=== PATIENT | female | born 1995 | race Caucasian/White ===

== ENCOUNTER 2021-07-22 05:11 | Inpatient (IN) | payer BC ==
[~2021-07-22] VITALS: Ht 165.1 cm; Wt 79.5 kg
[2021-07-22] VITALS (42 sets, daily range): BP systolic 108–137; BP diastolic 55–85; PULSE 73–120; TEMP 97.3–98.2
--- NOTE | 2021-07-22 05:15 | NUR ---
G1L0. 39-4. Ambulatory to LDR 5 with spouse. Clean gown on. EFM and TOCO explained and applied. Pt states her water broke at 0330, clear fluid. No contractions or vaginal bleeding at this time. Reports good movement. Amniotest +. SVE completed. Plan of care explained. Call light within [facility].
[2021-07-22 06:43] LABS: BASO # 0.1 K/mm3 (0.0-0.2); BASO % 0.4 % (0.0-2.0); EOS # 0.2 K/mm3 (0.0-0.7); EOS % 1.7 % (0.0-4.0); GRAN # 8.8 K/mm3 (1.4-6.5); GRAN % 68.8 % (42.2-75.2); HEMOGLOBIN 10.9 g/dl (12.5-16.0); LYMPH # 2.4 K/mm3 (1.2-3.4); LYMPH % 18.7 % (20.0-51.0); MEAN CELL VOLUME 96 fl (80.0-100.0); MEAN CORPUSCULAR HEMOGLOBIN 32 pg (27-31); MEAN CORPUSCULAR HGB CONC 34 g/dl (33.0-37.0); MEAN PLATELET VOLUME 10.4 fl (7.4-10.4); MONO # 1.2 K/mm3 (0.1-0.6); MONO % 9.6 % (1.7-9.3); PLATELET COUNT 207 K/mm3 (130-400); RED BLOOD COUNT 3.38 M/mm3 (4.10-5.30); REDCELL DISTRIBUTION WIDTH-CV 12.7 % (11.5-14.5)
[2021-07-22 06:44] LABS: HEMATOCRIT 32.5 % (37.0-47.0)
--- NOTE | 2021-07-22 07:58 | NUR ---
0758Subtle FHR decel lasting 60seconds. Ctx tracing intermittently. Difficult to determing FHR decel onset. [place] adjusted.
--- NOTE | 2021-07-22 09:45 | NUR ---
0945Patient requesting epidural. C. [employer] on unit. LR bolus initated.
--- NOTE | 2021-07-22 11:00 | NUR ---
1100Subtle FHR decels ever 2-3 min. Ctx tracing intermittently. Unable to determine FHR decel onset. RN at bedside adjusting EFM. Pt assisted wedge right.
--- NOTE | 2021-07-22 11:50 | NUR ---
Bilateral side lying hip release.
--- NOTE | 2021-07-22 13:17 | NUR ---
1317SVE C/+3. 1318Dr. Roles updated on pt. See physician notification. 1328Catheter removed. Practice push. Moves vertex well. Dr. Reddy to bedside for delivery. 1332Spontaneous delivery of viable female . Tight nuchal noted. Cut and reduced on perineum by Dr. Reddy. Nares and mouth bulb suctioned by Dr. Reddy. To mother's chest where dried and stimulated by nursery RN. Pitocin paused. 1334Cord clamped x2 and cut by father of . Care of assumed by Flakito Chris RN. 1336Spontaneous and intact delivery of placenta. Pitocin to 333ml/hr per orders. Second degree perineal laceration repaired by Dr. Reddy. Fundus firm, midline, and bleeding minimal. Nenita care provided, pads changed, and ice pack to perineum. Plan of care and safety precautions reviewed. See doctor dictation, anesthesia record, and nurses notes.
[2021-07-23 03:10] VITALS: BP 100/47; PULSE 90; TEMP 97.8
[2021-07-23 07:28] VITALS: BP 120/69; PULSE 80; TEMP 97.5
--- NOTE | 2021-07-23 09:13 | NUR ---
Initial visit; Patient thanked Uke Operator for offering congratulations and God's blessings for the of her daughter. Uke Operator thanked patient for choosing our hospital.
[2021-07-23] MEDS ORDERED: MOTRIN 800800 MG/TAB PO (11:59)
[2021-07-23 12:20] VITALS: BP 118/70; PULSE 80; TEMP 98.3
== END 2021-07-23 17:40 | disposition home or self-care (01) | DRG 807 ==
LOC: LDRO 05:11 → LDR 05:50 → OB 05:50
PROVIDERS: ADMIT Obstetrics & Gynecology
PROC: 10E0XZZ Delivery of Products of Conception, External Approach (ICD-10-PCS; principal; 2021-07-22)
PROC: 0KQM0ZZ Repair Perineum Muscle, Open Approach (ICD-10-PCS; 2021-07-22)
DX: O69.81X0 Labor and delivery complicated by cord around neck, without compression, not applicable or unspecified (principal); Z37.0 Single live birth; O70.1 Second degree perineal laceration during delivery; Z3A.39 39 weeks gestation of pregnancy
CPT/HCPCS: J2590; J7120

== ENCOUNTER → 2021-09-01 | Outpatient (CLI) | payer BC ==
[~2021-09-01] MED LIST: MOTRIN 800800 MG/TAB PO
--- NOTE | 2021-09-01 13:27 | NUR ---
Pt, Jean Paul Mora, presents for outpatient consult with 6 week old baby girl, Greg Fajardo, for a evaluation due to sore nipples. She is accompanied by her SO, Ralf Fajardo. Jean Paul contacted this end of last week with reports of wounds to the face of the nipple and at the nipple-areola junction. Because of appt. availability this is the first opportunity to meet. Meanwhile she was advised to contact her OB, Dr. Hughes, and request rx for Friedman's NIpple Cream. She was able to do this and reports improvment of the wounds. At this time the wounds are full thickness, healing tissue is noted. Greg was born on [birth year] and weighed 6#8oz. Today she weighs 8#10.1oz (3919 gms). Pt begins Greg in the traditional cradle hold, denies use of support pillows but is receptive to use of one here as this will keep Greg at the height of pt breast and reduce traction which typically causes the seperation at the nipple-areola junction. Pt is then advised to use cross cradle to help push the nipple and areola deeper into Greg's mouth. She states this is a little more comfortable. Pt is taught football hold, again changing the pressure points which helps with pain. Also discussed side-lying as another alternative. Pt states the support pillow is also helpful. evaluates oral structures of Greg's mouth, finding a moderately high anterior palate; she prefers to keep the depth of the finger mid-point, and an upper lip tie is observed. The upper lip does flange out well, so unsure of effect on sore nipples. After nursing the second breast, Greg has a weight gain of 2.2oz (60 gms). She appeared content and even had some spitting despite lower than expected intake. Also discussed use of smaller flanges for breastpump to improve fit. POC: Continue use of support under Greg, change angles from feeding to feeding, continue use of Friedman's NC, consider evalution of tongue tie with Dr. Paris at [facility]. F/U: With this prn and as scheduled with Dr. Vega and Dr. Hughes. Questions invited and answered.
== END ==
LOC: LAC 10:02
DX: Z39.1 Encounter for care and examination of lactating mother (principal)